=== PATIENT | male | born 2000 | race Caucasian/White ===

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

== ENCOUNTER 2021-11-14 21:51 | Emergency (ER) | payer BC, SELFPAY ==
[2021-11-14 21:51] VITALS: BP 124/77; PULSE 74; RESP 15; TEMP 36.3; O2SAT 98; BMI 23.0
--- NOTE | 2021-11-14 22:01 | EX.ED.UPPERE ---
HPI History of Present Illness HPI Narrative: Patient presents with right hand injury that occurred today. Patient states he was working on his car when the wrench slipped. Patient states his hand went forward and hit something hard. Patient states the pain is over the third metacarpal and MCP joint area. Patient describes pain as sharp. Patient states pain is worse with movement. Patient states nothing seems to help with the pain. Patient denies any paresthesias or weakness. Patient denies any other injuries. Chief Complaint: Upper Extremity Injury Informant: patient Occured/Mechanism Mechanism/Context: Yes blunt trauma Onset/Context/Timing Onset: Today Context: Sudden Onset Timing: Continuous Quality of Pain: Sharp Location: Right hand third metacarpal and MCP joint Worsened by: Movement Relieved by: Nothing Associated Symptoms Associated Symptoms: Negative for Parasthesia, Weakness or Loss of Funtion Narrative Tetanus Immunization: <5 years PFSH PFSH Medical History no medical history no medical history Home Medications NK 10/05/17 [History Last Taken Unknown] Allergy/AdvReac Type Severity Reaction Status Date / Time No Known Allergies Allergy Verified 11/14/21 21:55 Surgical History no surgical history no surgical history Social History (Updated 11/14/21 @ 22:[address] López Nava, DO) Smoking Status: Never smoker Smokeless tobacco user: chewing tobacco ROS ROS ED Constitutional Constitutional ED: Denies chills or fever(s) Eyes Eyes: Denies blurry vision or change in vision ENT ENT ED: Denies rhinorrhea or sore throat Cardiovascular Cardiovascular: Denies chest pain or palpitations Respiratory/Chest Respiratory/Chest: Denies cough or dyspnea Gastrointestinal Gastrointestinal: Denies nausea or vomiting Genitourinary Genitourinary ED: Denies dysuria or hematuria Musculoskeletal Musculoskeletal: Denies back pain or neck pain Integumentary Denies abscess or rash Neurologic Neurologic: Denies headache(s) or weakness Allergic/Immunologic Allergic/Immunologic ED: Denies mouth swelling or urticaria EXAM Physical Exam Const Vital Signs: 11/14/21 21:51 Temperature 97.3 F L Temperature Source Temporal Pulse Rate 74 Respiratory Rate 15 Blood Pressure 124/77 H Blood Pressure Mean 92 Pulse Ox 98 Oxygen Delivery Method Room Air Positive well nourished and well developed General Appearance ED: well developed and NAD HEENT Reports moist mucous membranes Neck full ROM and supple Extremity Extremity Narrative: There is tenderness, edema, and ecchymosis over the distal third metacarpal and MCP joint. There is no deformity noted. Range of motion was limited in all motions of the right third finger secondary to pain. Strength is 5/5 in the radial, median, and ulnar areas. Sensation was intact to light touch in the radial, median, and ulnar areas. Radial pulses are equal bilaterally. Capillary refill was less than 2 seconds in all digits. Neuro oriented x3, CN's II-XII intact bilaterally, moves all extremities, no focal motor deficits and no sensory deficits noted Sensorium / Orientation: alert Motor Exam: strength 5/5 throughout Psych mental status grossly normal MDM MDM MDM Narrative Medical decision making narrative: X-rays of the right hand were obtained. There are 3 views. On my interpretation, there is no acute fracture or dislocation. There are some soft tissue swelling noted. Radiologist also interpreted the x-rays and agrees. Patient was advised of his findings. Patient was instructed to ice and elevate the right hand. Patient was instructed to follow-up with his primary care physician in 5 to 7 days. Patient was instructed to take Tylenol or ibuprofen as needed for pain. Patient understood and was agreeable with the plan. All questions were answered. Discharge Plan Triage Chief Complaint: Upper Extremity Injury ED Provider: López Nava Dx/Rx/DC Orders Clinical Impression: Contusion of right hand, initial encounter Instructions: ED Hand Contusion Prescriptions: No Action NK Primary Care Provider: Care Physician,No Primary Referrals: Kavita Bolton MD [NON-STAFF] - 5-7 Days Disposition Disposition: Home, Self Care
--- NOTE | 2021-11-14 22:15 | RAD_ITS ---
STUDY: X-RAY - RIGHT HAND REASON FOR EXAM: Male, 21 years old. Injury/Pain TECHNIQUE: 3 view(s) of the hand. COMPARISON: None. FINDINGS: Normal radiocarpal articulation. Normal distal radioulnar joint. Normal visualized carpal bones. Normal carpal articulations Normal carpometacarpal articulation of the thumb. Normal second through fifth carpometacarpal joints. Normal metacarpi. Normal metacarpophalangeal joint of the thumb. Normal interphalangeal joint of the thumb. Normal proximal and distal phalanges of the thumb. Normal metacarpophalangeal joints of the second through fifth fingers. Normal proximal and distal interphalangeal joints of the second through fifth fingers. Normal phalanges of the second through fifth fingers. The soft tissue structures are unremarkable. RAD/Hand Min 3 Views IMPRESSION: Normal x-ray examination of the hand. Electronically Signed: Diomedes Escobar DO at 22:32 EDT ,
[2021-11-14 22:37] VITALS: BP 122/78; PULSE 78; RESP 16; O2SAT 98
== END 2021-11-14 22:43 | disposition home or self-care (01) ==
PROVIDERS: Emergency Provider Emergency Medicine; Visit Provider Emergency Medicine
DX: S60.221A Contusion of right hand, initial encounter (principal); W22.09XA Striking against other stationary object, initial encounter; Z72.0 Tobacco use
CPT/HCPCS: 73130; 99282

== ENCOUNTER 2022-03-05 19:05 | Emergency (ER) | payer BC, SELFPAY ==
[2022-03-05 19:05] VITALS: BP 142/80; PULSE 85; RESP 16; TEMP 36.8; O2SAT 100; BMI 24.3
[2022-03-05 19:08] VITALS: BP 142/80; PULSE 85; RESP 16; TEMP 36.8; O2SAT 100
--- NOTE | 2022-03-05 19:21 | EDS_ITS ---
HPI History of Present Illness Chief Complaint: Abscess Informant: patient Onset/Context/Timing Onset: Days Context: Gradual Onset Current Severity: Moderate Maximum Severity: Moderate Narrative Narrative: Patient presents with an abscess to the left posterior neck. He states he first noted small area couple days ago. He got 1 area to drain but the second area has become rather enlarged and painful over the past 24 hours. Has not been able getting drainage out of it. It is right at the hairline. PFSH PFSH Medical History no medical history no medical history Home Medications doxycycline monohydrate 100 mg capsule 100 mg PO BID #20 caps 03/05/22 [Rx Last Taken Unknown] Allergy/AdvReac Type Severity Reaction Status Date / Time No Known Allergies Allergy Verified 11/14/21 21:55 Social History Smoking Status: Never smoker Smokeless tobacco user: chewing tobacco ROS ROS ED Constitutional Constitutional ED: Denies chills or fever(s) Eyes Eyes: Denies change in vision ENT ENT ED: Denies rhinorrhea or sore throat Cardiovascular Cardiovascular: Denies chest pain Respiratory/Chest Respiratory/Chest: Denies cough or dyspnea Gastrointestinal Gastrointestinal: Denies abdominal pain, nausea or vomiting Musculoskeletal Musculoskeletal: Denies back pain or extremity pain Integumentary Reports abscess; Denies Abrasions or rash Neurologic Neurologic: Denies headache(s) or weakness Psychiatric Psychiatric: Denies anxiety or depression Allergic/Immunologic Allergic/Immunologic ED: Denies lip swelling or urticaria EXAM Physical Exam Const Vital Signs: 03/05/22 19:05 03/05/22 19:08 Temperature 98.3 F 98.3 F Temperature Source Temporal Temporal Pulse Rate 85 85 Respiratory Rate 16 16 Blood Pressure 142/80 H 142/80 H Blood Pressure Mean 100 100 Pulse Ox 100 100 Oxygen Delivery Method Room Air Room Air Positive well nourished and well developed General Appearance ED: well developed HEENT Reports normocephalic and head/scalp atraumatic Eyes PERRL and EOMs intact bilaterally Neck supple Chest Wall inspection of chest normal and palpation of chest normal Resp normal respiratory effort and clear to auscultation bilaterally Cardio regular rate and regular rhythm GI Palpation: soft Extremity normal to inspection Neuro oriented x3 and no sensory deficits noted Sensorium / Orientation: alert Motor Exam: strength 5/5 throughout Psych mental status grossly normal Skin Skin Narrative: 1.5 x 1 cm cutaneous abscess along the left posterior neck at the hairline. Area is firm with no fluctuance noted at this time. No surrounding cellulitis. MDM MDM MDM Narrative Medical decision making narrative: TimeBedside ultrasound was used to visualize the area. There is significant induration with a any fluid pocket in the center. I do not think this is going to be easily drainable or extremely beneficial. Patient will use warm compresse s to the area and we will start him on doxycycline. Return instructions are given. Discharge Plan Triage Chief Complaint: Abscess ED Provider: Cecille Vance Dx/Rx/DC Orders Clinical Impression: Cutaneous abscess Instructions: ED Abscess Antibiotic Treatment Only Prescriptions: New doxycycline monohydrate 100 mg capsule 100 mg PO BID Qty: 20 0RF Primary Care Provider: Care Physician,No Primary Referrals: Jaimie Lion MD [Med Staff - Desizing Machine Back Tender] - As Needed Care Physician,No Primary [Primary Care Provider] - Disposition Disposition: Home, Self Care
[2022-03-05] MEDS: Doxycycline 100 MG CAPSULE PO (19:34)
[2022-03-05 19:36] VITALS: RESP 16
== END 2022-03-05 19:36 | disposition home or self-care (01) ==
LOC: ED 19:34
PROVIDERS: Emergency Provider Emergency Medicine; Visit Provider Emergency Medicine
DX: L02.91 Cutaneous abscess, unspecified (principal)
CPT/HCPCS: 99283

== ENCOUNTER 2022-09-29 15:21 | Outpatient (RCR) | payer OTHER, SELFPAY ==
--- NOTE | 2022-10-06 00:01 | HP.PTEVAL ---
Patient's Visit Information MICAH MORRIS is a 22 year old M referred to Physical Therapy by Dr. Stefano Montemayor MD with a diagnosis of OTHER INSTABILITY ,LEFT SHOULDER. Date of Evaluation: 09/29/22 Physical Therapist: Micah Mckeon PT, Cert MDT, OCS - Visit Plan Frequency: 2x /Week Duration: 4 Weeks Plan: PATIENT PLANS TO GET MRI. PT INTERVTIONS GRADED ROM ,ISOMTRICS SHOULDER ,PROGRESS TO GRADED STRENGTHENINB RTC/SCAPUAR AND MODALTIES FOR PAIN RELIEVE - Subjective This 22 y/o male presents to physical therapy with shoulder dislocation. Patient has had multiple dislocation in shoulder started while in ~ 19 years old . Patient has multiple shoulder dislocation ,~ 20 times but several time past 2 weeks. 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 Seen Dr. Montemayor recommended PT and MRI. Plan to see DR Moralez this Tuesday. Patient has intermittent. Patient has pins/needles and paresthesia/tingling. Patient has pain with lifting/pushing and moving arm OH. Becomes vey tight and pops when lifting. Patient is off work until cleared from DR . Patient pain is affected all ADLS ,function and unable RTW. Patient goal to avoid surgery and return to prior level of activity. SOCAIL: sinle. VOCATION: welder assembler - Pain Left Shoulder Pain Intensity (Out of 10): 4 Pain Intensity Range: 10 - Objective POSTURE: mild forward posture rounded shoulders. NEURO: c/o 's paresthesia/tingle pins/needles , Myotome weakness C5-6. PALAPATION: tender lateral AC ,anterior. OBSERVATION: anterior ecchymosis. AROM : shoulder flexion 90 pain, abduction 90 pain. PROM: shoulder flexion 100 degrees ,abduction 100 degrees ER 30 pain causes pins /needles. MMT: NT ( [employer]) 0 - Special Tests L Shoulder Lift Off Test - Subscapular Tear: Positive L Shoulder Empty Can - SS: Positive L Shoulder Belly Press - SupScap: Negative L Shoulder Neer - Impingement: Positive L Shoulder Hendrickson Ricki - Impingement: Positive L Shoulder Biceps Load Test - Labrum: Positive L Shoulder Yeargasons - SLAP: Positive L Shoulder Apprehension Test - Anterior Instability: Positive L Shoulder Speeds Test - Labrum/Biceps: Positive L Shoulder Sulcus Sign - Inferior Laxity: Positive - Balance/Special Test Scores Quick DASH Score: 70.4525 - Goals Goal 1:: Patient to be I with HEP for shoulder Goal Time Frame: 4-6 Weeks Goal 2:: Patient to demonstrate 40% improvement with decrease pain and improve function Goal Time Frame: 4-6 Weeks Goal 3:: Patient improve AROM shoulder all planes by 20 degrees or > to improve function Goal Time Frame: 4-6 Weeks Goal 4:: Patient to improve peak force by 20 to improve function of shoulder and strength Goal Time Frame: 4-6 Weeks Goal 5:: Patient to improve quick dash by 5 points to improve function Goal Time Frame: 4-6 Weeks - Rehabilitation Potential Physical Therapy Diagnosis: This patient has had multiple dislocation with most recent is from trauma to left shoulder with pain ,decrease ROM ,strength impairs ability to RTW and ADLS Rehabilitation Potential: Fair - Anticipated Interventions Patient/Client Instruction: Educate patient on: Condition, Plan of Care For the Purpose of:: To decrease pain, To increase ROM, To improve muscle performance and motor function, To improve ability to perform ADL's, To increase tolerance to activity/condition/position, To improve performance and independence with ADL's, To improve ability of physical actions for home/community/work/leisure, To improve health of tissue, To decrease soft tissue restriction, To increase flexibility/ROM, To prevent re-injury, To improve tolerance to ADL's Therapeutic Exercise to Include: Strength training, Body mechanics, Postural training, Flexibilty training, Active ROM, Scapular Strength/Stabilization For the Purpose of:: To decrease pain, To increase ROM, To improve muscle performance and motor function, To increase tolerance to activity/condition/position, To improve performance and independence with ADL's, To improve ability of physical actions for home/community/work/leisure, To improve health of tissue, To decrease soft tissue restriction, To increase flexibility/ROM, To prevent re-injury, To improve tolerance to ADL's TENS: Yes IF ES: Yes Cryotherapy (ice pack, ice massage): Yes Thermo therapy (hot pack): Yes Ultrasound (thermal/non thermal): Yes For the Purpose of:: To decrease pain, To increase ROM, To improve nutrient delivery to tissue, To increase oxygenation perfusion, To decrease soft tissue restriction, To increase flexibility/ROM Thank you for the opportunity to evaluate your patient. For Medicare and Medicare HMO plans, please review the plan of care and approve it. It will need to be FAXED BACK to us at [phone] for Medicare purposes. For Medicare only, by signing this I certify the plan of care. Please let me know if there are questions or concerns regarding this plan of care. Physician Signature: Date:
--- NOTE | 2022-12-21 08:53 | HP.PTDCNRP_ITS ---
Patient Information Patient Information: MICAH MORRIS was seen in my office for initial evaluation on 09/29/22. The following Plan of Care was established for this patient: POC Established Initial Frequency: 2x /Week Initial Duration: 4 Weeks Anticipated Interventions Patient/Client Instruction: Educate patient on: Condition and Plan of Care For the Purpose of:: To decrease pain, To increase ROM, To improve muscle performance and motor function, To improve ability to perform ADL's, To increase tolerance to activity/condition/position, To improve performance and ind ependence with ADL's, To improve ability of physical actions for home/community/work/leisure, To improve health of tissue, To decrease soft tissue restriction, To increase flexibility/ROM, To prevent re-injury and To improve tolerance to ADL's Therapeutic Exercise to Include: Strength training, Body mechanics, Postural training, Flexibilty training, Active ROM and Scapular Strength/Stabilization For the Purpose of:: To decrease pain, To increase ROM, To improve muscle performance and motor function, To increase tolerance to activity/condition/pos ition, To improve performance and independence with ADL's, To improve ability of physical actions for home/community/work/leisure, To improve health of tissue, To decrease soft tissue restriction, To increase flexibility/ROM, To prevent re- injury and To improve tolerance to ADL's TENS: Yes IF ES: Yes Cryotherapy (ice pack, ice massage): Yes Thermo therapy (hot pack): Yes Ultrasound (thermal/non thermal): Yes For the Purpose of:: To decrease pain, To increase ROM, To improve nutrient delivery to tissue, To increase oxygenation perfusion, To decrease soft tissue restriction and To increase flexibility/ROM Last Seen Last Seen: This patient was last seen in our office . Pertinent comments regarding their Physical therapy will appear below: Patient was seen for Intial PT evaluation then f/u with orthopedic DR At this point I will be discontinuing this patient from physical therapy. I would be happy to see this patient again in the future if found appropriate by the physician. Thank you! Micah Mckeon, PT, Cert MDT, OCS Balance/Gait/Functional tests Balance/Special Test Scores Quick DASH Score: 70.4525
== END 2022-09-29 19:00 | disposition home or self-care (01) ==
LOC: PT 15:21
PROVIDERS: Referring Provider Student in an Organized Health Care Education/Training Program; Visit Provider Student in an Organized Health Care Education/Training Program
DX: M25.312 Other instability, left shoulder (principal)
CPT/HCPCS: 97014; 97161; G0283

== ENCOUNTER → 2022-10-19 | Outpatient (CLI) | payer OTHER, SELFPAY ==
--- NOTE | 2022-10-19 12:05 | RAD_ITS ---
CLINICAL HISTORY: Male, 22 years old. Possible left shoulder labral tear. PROCEDURE: ARTHROGRAM - LEFT SHOULDER CONSENT: The procedure as well as the benefits and possible complications including infection and bleeding were explained to the patient. Informed consent was obtained. FLUOROSCOPY TIME (if supplied): (1 minute and 52 seconds) minutes/seconds. 22 mGy Injection Information: 10 cc of dilute MRI contrast Number of images obtained: 4 TECHNIQUE: (All elements of maximal sterile barrier technique followed, including US elements as applicable) The patient was in the supine position. The overlying skin was prepped and draped in the usual sterile fashion. Final anesthetic application and under direct fluoroscopic guidance, a 22-gauge spinal needle was placed into the shoulder joint. 2 cc of Isovue-300 was injected for confirmation. Following this, 10 cc of dilute MRI contrast was injected. MRI will follow. RAD/Arthrogram Shoulder w/ MRI IMPRESSION: Successful left shoulder arthrogram for MRI examination. The patient tolerated the procedure well. Electronically Signed: Jesus Dsouza MD at 14:04 EDT ,
--- NOTE | 2022-10-19 12:23 | MRI_ITS ---
STUDY: MRI ARTHROGRAM OF LEFT SHOULDER REASON FOR EXAM: Male, 22 years old. Instability. Evaluate for labral tear. TECHNIQUE: Standardized fat and water weighted pulse sequences were obtained in all 3 orthogonal planes after the intra-articular administration of a solution containing 10 cc of dilute Isovue-300 and Clariscan contrast. COMPARISON: Left shoulder x-rays dated September 22, 2022. FINDINGS: Adequate distention of the shoulder joint with contrast. Normal supraspinatus tendon. Normal infraspinatus tendon. Normal subscapularis tendon. Normal teres minor tendon. Normal supraspinatus muscle. Normal infraspinatus muscle. Normal subscapularis muscle. Normal teres minor muscle. Normal glenohumeral articulation. Normal humeral head and visualized proximal humerus. Normal biceps labral complex. Normal intracapsular long biceps tendon. Normal labrum. Normal capsulo- ligamentous complex. Normal rotator interval. Small AC joint effusion with AC joint hypertrophy without significant narrowing of the subacromial space (coronal series 3 images 7-11). There is a Type II morphology (curved), with a neutral orientation. There is no subacromial-subdeltoid bursal fluid. Normal visualized coracohumeral and coracoacromial ligaments. Normal quadrilateral space. Normal axillary space. Normal deltoid muscle. Normal trapezius muscle. MRI/Upper Ext Jt Only W/Contrast IMPRESSION: Mild AC joint hypertrophy with minimal narrowing of the subacromial space. No labral tear identified. Electronically Signed: Israel Damon MD at 10:06 EDT ,
[2022-10-19] MEDS: Lidocaine 2% (5ml sdv) 5 ML VIAL.MPF (12:30)
[2022-10-19] MEDS: Iopamidol 10 ML in Syringe 1 EACH 600 ML INTRAARTIC (12:30)
[2022-10-19] MEDS: Gadoterate Meglumine Diluted 10 ML, Iopamidol 5 ML, Lidocaine 1% (20 ml mdv) 5 ML, Epin... INTRAARTIC (12:30)
== END | disposition home or self-care (01) ==
PROVIDERS: Referring Provider Orthopaedic Surgery Sports Medicine; Visit Provider Orthopaedic Surgery Sports Medicine
DX: M25.312 Other instability, left shoulder (principal)
CPT/HCPCS: 23350; 73222; 77002; Q9967

== ENCOUNTER 2023-07-05 16:10 | Emergency (ER) | payer OTHER, SELFPAY ==
[2023-07-05 16:10] VITALS: BP 134/85; PULSE 73; RESP 16; TEMP 36.8; O2SAT 98; BMI 23.3
--- NOTE | 2023-07-05 16:34 | NURSING ---
NO OLD EKGS
--- NOTE | 2023-07-05 16:51 | EKG12_ITS ---
Test Reason : CP Blood Pressure : / mmHG Vent. Rate : 087 BPM Atrial Rate : 087 BPM P-R Int : 150 ms QRS Dur : 088 ms QT Int : 360 ms P-R-T Axes : 056 054 022 degrees QTc Int : 433 ms Normal sinus rhythm with sinus arrhythmia Normal ECG Confirmed by LILA BRODERCIK, RANGEL (1943), story editor DONTE GERMAN ([id number]) on 07/11/2023 10:12:23 AM Referred By: JUANY/FRANCHESKA Confirmed By:LORRAINE SHARP MD
--- NOTE | 2023-07-05 16:51 | CT_ITS ---
CT/CTA Chst, Abd, Pel W and/or WO IMPRESSION: No definite acute or significant abnormality seen. Electronically Signed: Mir Garcia MD at 18:16 EST ,
--- NOTE | 2023-07-05 16:52 | ED.VIS.CHEST ---
HPI History of Present Illness Chief Complaint: Chest Pain Informant: patient Onset/Context/Timing Onset: Days (4 days) Activity at onset: gradual Narrative Narrative: Patient presents secondary to left chest pain for the past 4 days. He states he has pain from the left upper ribs down to the pelvis. He will then have pain that shoots down his leg and down his arm. He did have difficulty picking up items at work yesterday. He also feels short of breath and nauseated. He did vomit yesterday. He has not noted fever or chills. No significant cough. [facility] Medical History Back pain Instability of left shoulder joint Home Medications diazepam 5 mg tablet (Valium) 2.5 mg (1/2 x 5 mg) PO BID PRN muscle spasm #7 tabs 07/05/23 [Rx Last Taken Unknown] naproxen 500 mg tablet (Naprosyn) 500 mg PO BID PRN pain #20 tabs 07/05/23 [Rx Last Taken Unknown] Allergy/AdvReac Type Severity Reaction Status Date / Time No Known Allergies Allergy Verified 07/05/23 16:12 Social History Smoking Status: Former smoker Smokeless tobacco user: chewing tobacco ROS ROS ED Constitutional Constitutional ED: Denies chills or fever(s) Eyes Eyes: Denies discharge from eye(s) ENT ENT ED: Denies discharge from eye(s), rhinorrhea or sore throat Cardiovascular Cardiovascular: Reports chest pain; Denies palpitations or racing heartbeat Respiratory/Chest Respiratory/Chest: Reports dyspnea; Denies cough Gastrointestinal Gastrointestinal: Reports abdominal pain, nausea and vomiting; Denies diarrhea Genitourinary Genitourinary ED: Denies dysuria Musculoskeletal Musculoskeletal: Reports extremity pain; Denies back pain Integumentary Denies Abrasions or rash Neurologic Neurologic: Denies headache(s) or weakness Psychiatric Psychiatric: Denies anxiety or depression Allergic/Immunologic Allergic/Immunologic ED: Denies lip swelling or urticaria EXAM Physical Exam Const Vital Signs: 07/05/23 16:10 07/05/23 16:23 07/05/23 17:15 Temperature 98.2 F Temperature Source Temporal Pulse Rate 73 69 Respiratory Rate 16 14 Respiratory Effort Normal Non-Labored Respiratory Pattern Normal Blood Pressure 134/85 H 140/88 H Blood Pressure Mean 101 105 Pulse Ox 98 100 Oxygen Delivery Method Room Air Room Air 07/05/23 18:00 07/05/23 19:08 Temperature 98 F Temperature Source Oral Pulse Rate 57 L 47 L Respiratory Rate 19 H 14 Respiratory Effort Respiratory Pattern Blood Pressure 129/72 H 104/63 Blood Pressure Mean 91 76 Pulse Ox 100 95 Oxygen Delivery Method Room Air Room Air Positive well nourished and well developed General Appearance ED: well developed HEENT Reports moist mucous membranes Eyes EOMs intact bilaterally Chest Wall inspection of chest normal and palpation of chest normal Resp normal respiratory effort and clear to auscultation bilaterally Cardio regular rate and regular rhythm GI GI Narrative: Mild left upper quadrant tenderness to palpation. No guarding or rebound. Back/Spine no CVA tenderness and no thoracic nor lumbar tenderness Neuro oriented x3 and no sensory deficits noted Motor Exam: strength 5/5 throughout Skin no rashes or lesions noted MDM MDM MDM Narrative Medical decision making narrative: Patient placed on equipment monitor phototypesetting. EKG obtained to evaluate for cardiac arrhythmia/ischemia. IV line initiated. Labwork obtained to evaluate for leukocytosis, anemia, and electrolyte derangement. CTA of the chest, abdomen, and pelvis obtained to evaluate for PE, pneumothorax, aortic dissection. History & Record Review Discussion w/independent historian: Patient and Family Lab Data Attestation: I reviewed the patient's lab results. Labs: Laboratory Results - last 24 hr 07/05/23 07/05/23 17:02 18:09 WBC 5.9 RBC 5.22 Hgb 15.7 Hct 44.7 MCV 85.6 MCH 30.1 MCHC 35.1 RDW Std Deviation 36.1 RDW Coeff of Lia 11.8 Plt Count 227 MPV 9.5 Immature Gran % (Auto) 0.200 Neut % (Auto) 56.6 Lymph % (Auto) 34.5 [place] % (Auto) 8.0 Eos % (Auto) 0.2 Baso % (Auto) 0.5 Absolute Neuts (auto) 3.3 Absolute Lymphs (auto) 2.03 Nucleated RBC % 0 Sodium 142 Potassium 3.6 Chloride 110 H Carbon Dioxide 29.0 Anion Gap 3 L BUN 15 Creatinine 1.13 Estim Creat Clear Calc 105.88 Est GFR (MDRD) Af Amer 104 Est GFR (MDRD) Non-Af 86 BUN/Creatinine Ratio 13.3 Glucose 96 Calcium 9.7 Troponin I High Sens 6 POC Glucose 79 Radiography Diagnostic Testing: Clinical Impression(s) from Imaging Studies Chest/Abdomen/Pelvis CTA 07/05/23 16:51 IMPRESSION: No definite acute or significant abnormality seen. Electronically Signed: Mir Garcia MD at 18:16 EST , EKG Initial EKG: Attestation: I personally reviewed and interpreted this EKG as follows: Interpretation: Sinus Rhythm (Sinus at 87 with no acute ischemia.) Treatment and Re-Evaluation :: CBC was normal white count 5.9 with a hemoglobin of 15.7. Chemistry studies unremarkable. Troponin is normal at 6.. CTA of the chest, abdomen, and pelvis are obtained and reveal no acute abnormalities. EKG is sinus rhythm with no ischemia. Shortly after getting back from CT, nursing staff states patient became pale and diaphoretic. Blood sugar was checked and was normal at 79. He was given Toradol, Zofran, and some Valium for muscle spasm. At this time he states his symptoms are improving. I do think patient has musculoskeletal pain with nerve impingement down the leg and arm. He will be treated with naproxen and Valium. He will be given a work note. Return instructions given. Discharge Plan Triage Chief Complaint: Chest Pain ED Provider: Cecille Vance Dx/Rx/DC Orders Clinical Impression: Back pain, Radiculopathy Instructions: ED Back Pain (Acute or Chronic) Prescriptions: New naproxen [Naprosyn] 500 mg tablet 500 mg PO BID PRN (Reason: pain) Qty: 20 0RF diazepam [Valium] 5 mg tablet 2.5 mg PO BID PRN (Reason: muscle spasm) Qty: 7 0RF Primary Care Provider: Kavita Bolton Referrals: Kavita Bolton MD [Primary Care Provider] - 1 Week Care Physician,No Primary [Non-Staff] - Disposition Disposition: Home, Self Care
[2023-07-05] MEDS: Ondansetron ODT 4 MG Tablet PO (17:13)
[2023-07-05 17:15] VITALS: BP 140/88; PULSE 69; RESP 14; O2SAT 100
[2023-07-05 17:32] LABS: Absolute Lymphocyte Count 2.03 X10^3/uL (0.83-4.51); Absolute Neutrophil Count 3.3 X10^3/uL (2.0-7.7); Basophil# 0.03 X10^3/uL; Basophil% 0.5 % (0-1); Eosinophil# 0.01 X10^3/uL; Eosinophils% 0.2 % (0-5); Hematocrit 44.7 % (40-54); Hemoglobin 15.7 g/dL (13.0-16.5); Lymphocyte # 2.03 X10^3/ul (0.83-4.51); Lymphocyte % 34.5 % (19-41); Mean Corp Hgb Conc 35.1 g/dL (32-36); Mean Corpuscular Hgb 30.1 pg (27.0-32.0); Mean Corpuscular Volume 85.6 fL (80-94); Mean Platelet Vol. 9.5 fl (6.2-12.0); Monocyte# 0.47 X10^3/uL; NRBC Flagged by Analyzer 0 % (0-5); Neutrophil # 3.33 X10^3/uL (2.7-7.7); Neutrophil % 56.6 % (47-70); Platelet Count 227 K/mm3 (150-450); RBC Distribution Width CV 11.8 % (11.6-14.6); RBC Distribution Width SD 36.1 fl (35.1-43.9); Red Blood Count 5.22 M/mm3 (4.6-6.2); White Blood Count 5.9 K/mm3 (4.4-11.0)
[2023-07-05 17:44] LABS: Anion Gap 3 (5-15); BUN 15 mg/dL (7-18); BUN/Creat Ratio 13.3 RATIO (10-20); Calcium,Total 9.7 mg/dL (8.5-10.1); Chloride 110 mmol/L (98-107); Creatinine, Serum 1.13 mg/dL (0.70-1.30); EST Glomerular Filtration Rate 86 mL/min (>60); Est Glom Filt Rate - Afr Amer 104 mL/min (>60); Estimated Creatinine Clearance 105.88 ml/min; Glucose 96 mg/dL (74-106); Potassium 3.6 mmol/L (3.5-5.1); Sodium Level 142 mmol/L (136-145); Troponin-I HS 6 pg/mL (3.0-78.0)
[2023-07-05 18:00] VITALS: BP 129/72; PULSE 57; RESP 19; TEMP 36.6; O2SAT 100
[2023-07-05] MEDS: diazePAM 5 MG Tablet 2.5 MG PO (18:18)
[2023-07-05] MEDS: Ondansetron 4 MG/2 ML Vial IV (18:18)
[2023-07-05] MEDS: Ketorolac 15 MG/ML Vial IV (18:18)
[2023-07-05 18:28] LABS: Bedside Glucose 79 mg/dL (74-106)
--- NOTE | 2023-07-05 18:29 | ED.RN ---
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 Vitals obtained, all WNL. Pt states L side of body feels numb and weak. Glucose obtained, WNL. New findings given to Dr. Vance.
[2023-07-05 19:08] VITALS: BP 104/63; PULSE 47; RESP 14; O2SAT 95
[2023-07-05 19:28] VITALS: BP 113/88; PULSE 53; RESP 15; TEMP 36.4; O2SAT 99
== END 2023-07-05 19:35 | disposition home or self-care (01) ==
PROVIDERS: Emergency Provider Emergency Medicine; PCP Family Medicine; Visit Provider Emergency Medicine
DX: M54.10 Radiculopathy, site unspecified (principal); R11.0 Nausea; F17.220 Nicotine dependence, chewing tobacco, uncomplicated; R06.02 Shortness of breath
CPT/HCPCS: 71275; 74174; 80048; 82962; 84484; 85025; 87631; 93005; 99285; Q9967; A4216; J2405

== ENCOUNTER → 2023-08-31 | Outpatient (CLI) | payer OTHER, SELFPAY ==
--- NOTE | 2023-08-31 06:32 | MRI_ITS ---
STUDY: MRI LUMBAR SPINE WITHOUT CONTRAST REASON FOR EXAM: Male, 22 years old. pain low back and chest x 8 months TECHNIQUE: Standardized fat and water weighted pulse sequences were obtained in the sagittal and axial planes. COMPARISON: X-ray the lumbar spine dated July 22, 2023 FINDINGS: There is straightening of the normal lumbar lordosis. There is mild levoscoliosis of the lumbar spine. Normal conus medullaris that terminates at the L1-L2 level. No marrow edema or fracture or compression deformity is present. T12-L1: Normal endplates. Normal disc height, hydration and morphology. Normal bilateral facet joints. Normal central canal and bilateral lateral recesses. Normal bilateral intervertebral neural foramina. L1-2: Normal endplates. Small Schmorl''s node. Minimal asymmetric disc space narrowing without bulging or herniation of the disc. Normal bilateral facet joints. Normal central canal and bilateral lateral recesses. Normal bilateral intervertebral neural foramina. L2-3: Normal endplates. Minimal asymmetric disc space narrowing without bulging or herniation of the disc. Normal bilateral facet joints. Normal central canal and bilateral lateral recesses. Normal bilateral intervertebral neural foramina. L3-4: Normal endplates. Small Schmorl''s node. Minimal asymmetric disc space narrowing without bulging or herniation of the disc. Normal bilateral facet joints. Normal central canal and bilateral lateral recesses. Normal bilateral intervertebral neural foramina. L4-5: Normal endplates. Normal disc height, hydration and morphology. Normal bilateral facet joints. Normal central canal and bilateral lateral recesses. Normal bilateral intervertebral neural foramina. L5-S1: Normal endplates. Normal disc height, hydration and morphology. Normal bilateral facet joints. Normal central canal and bilateral lateral recesses. Normal bilateral intervertebral neural foramina. Normal visualized sacral ala. Normal visualized paraspinous soft tissue structures. MRI/Spine Lumbar (Routine) IMPRESSION: 1. Mild levoscoliosis and minimal asymmetric disc space narrowing. Electronically Signed: Dylan Stevens MD at 11:46 EDT ,
--- NOTE | 2023-08-31 06:32 | MRI_ITS ---
EXAM: MR THORACIC SPINE WITHOUT INTRAVENOUS CONTRAST CLINICAL INDICATION: pain TECHNIQUE: Multiplanar and multisequence MR images of the thoracic spine without intravenous contrast. COMPARISON: No relevant prior studies available. FINDINGS: VERTEBRAE: Small Schmorl nodes are identified at the lower thoracic level involving T8-T12. No fracture. Normal vertebral bodies and posterior elements are otherwise unremarkable. Normal alignment. There is preservation of the normal thoracic kyphosis. No scoliosis. DISCS/SPINAL CANAL/NEURAL FORAMINA: Normal. Normal disc height and morphology. Normal spinal canal and neuroforamina. SPINAL CORD: Normal. Normal in signal and morphology. Normal conus medullaris. SOFT TISSUES: Normal. MRI/Spine Thoracic (Routine) IMPRESSION: No significant thoracic spine abnormality. Electronically Signed: Tavon Caballero MD at 14:44 EDT ,
== END | disposition home or self-care (01) ==
PROVIDERS: PCP Family Medicine; Referring Provider Orthopaedic Surgery; Visit Provider Orthopaedic Surgery
DX: M54.14 Radiculopathy, thoracic region (principal); M51.26 Other intervertebral disc displacement, lumbar region
CPT/HCPCS: 72146; 72148

== ENCOUNTER → 2024-09-21 | Outpatient (CLI) | payer SELFPAY ==
--- NOTE | 2024-09-21 09:29 | MRI_ITS ---
PROCEDURE: SPINE LUMBAR (ROUTINE) 09/21/2024 REASON FOR EXAM: LOW BACK PAIN TECHNIQUE: Multiplanar and multisequence images were obtained without IV contrast administration. COMPARISON: Lumbar MRI and plain films dated 08/31/2023 FINDINGS: Vertebrae: Normal in morphology and signal characteristics. No evidence of fracture, collapse or intrinsic bony lesion. Alignment: Physiologic. Conus Medullaris: Lower L1 level L1-2: The disc is normal in morphology and signal characteristics. The neural foramina are patent bilaterally and the facet joints are within normal limits bilaterally. L2-3: The disc is normal in morphology and signal characteristics. The neural foramina are patent bilaterally and the facet joints are within normal limits bilaterally. L3-4: The disc is normal in morphology and signal characteristics. The neural foramina are patent bilaterally. Facet joint arthropathy is mild on the right. The left facet joint is within normal limits. L4-5: The disc is normal in morphology and signal characteristics. The neural foramina are patent bilaterally and the facet joints are within normal limits bilaterally. L5-S1: The disc is normal in morphology and signal characteristics. The neural foramina are patent bilaterally and the facet joints are within normal limits bilaterally. Sacrum: Normal in appearance. No evidence of Tarlov cyst or bony lesion. MRI/Spine Lumbar (Routine) IMPRESSION: Mild right L3-L4 facet joint arthropathy. The study is otherwise within normal limits. [facility]
== END | disposition home or self-care (01) ==
PROVIDERS: PCP Family Medicine; Referring Provider Anesthesiology Pain Medicine; Visit Provider Anesthesiology Pain Medicine
DX: M54.12 Radiculopathy, cervical region (principal)
CPT/HCPCS: 72148